=== PATIENT | male | born 1970 | race Caucasian/White ===

== ENCOUNTER 2019-04-14 17:56 | Inpatient (IN) | payer BC ==
[~2019-04-14] VITALS: Ht 172.7 cm; Wt 70.3 kg
--- NOTE | 2019-04-14 00:30 | NUR ---
ORDER HISTORY REFLECTS ORDER FOR POTASSIUM COMPLETE. CONTACTED PHARMACY TO REINSTATE ORDER SO PRESCRIBED POTASSIUM COULD BE GIVEN TO PATIENT. NEW ORDER TO BEGIN AT 0430/0530 RESPECTIVELY.
[2019-04-14] MEDS ORDERED: MORPHINE SULFATE 2 MG/1 ML DISP.SYRIN IV ONE (18:15)
[2019-04-14] MEDS ORDERED: IV NORMAL SALINE 1000 ML BAG IV ONE (18:15)
[2019-04-14] MEDS ORDERED: ONDANSETRON 4 MG/2 ML VIAL IV ONE ×3 (18:15→21:30)
[2019-04-14] MEDS ORDERED: ONDANSETRON 4 MG/2 ML VIAL ONE ×2 (18:21→18:58)
[2019-04-14] MEDS ORDERED: MORPHINE SULFATE 4 MG/1 ML DISP.SYRIN ONE (18:21)
[2019-04-14 18:30] LABS: BASOPHILS % (AUTO) 0.5 % (0.0-2.0); EOSINOPHILS # (AUTO) 0.1 K/uL (0.0-0.7); HEMATOCRIT 42.1 % (36.7-47.1); HEMOGLOBIN 14.5 g/dL (12.5-16.3); LYMPHOCYTES % (AUTO) 25.7 % (20.5-51.5); MEAN CORPUSCULAR HEMOGLOBIN 29.8 uug (23.8-33.4); MEAN CORPUSCULAR HGB CONC 35 g/dL (32.5-36.3); MEAN CORPUSCULAR VOLUME 86.1 fL (73.0-96.2); MONOCYTES # (AUTO) 0.5 K/uL (2.0-10.0); MONOCYTES % (AUTO) 6.5 % (0.0-11.0); NEUTROPHILS # (AUTO) 5.1 K/uL (1.8-8.9); NEUTROPHILS % (AUTO) 66.3 % (38.5-71.5); PLATELET COUNT (AUTO) 228 K/uL (152-348); RED BLOOD CELL COUNT(AUTO) 4.89 MIL/uL (4.06-5.63); WHITE BLOOD COUNT (AUTO) 7.7 K/uL (3.6-10.2)
[2019-04-14 18:35] LABS: CREATININE 1.1 mg/dL (0.6-1.3); POTASSIUM 3.2 mmol/L (3.5-5.1)
[2019-04-14 18:40] LABS: BILIRUBIN,DIRECT 0.1 mg/dL (0.0-0.2); BILIRUBIN,TOTAL 0.6 mg/dL (0.2-1.0); TOTAL PROTEIN, SERUM 7.9 g/dL (6.4-8.2)
[2019-04-14] MEDS ORDERED: HYDROMORPHONE 1 MG/1 ML DISP.SYRIN ONE ×2 (18:42→20:06)
[2019-04-14] MEDS ORDERED: HYDROMORPHONE 1 MG/1 ML DISP.SYRIN IV ONE ×2 (18:45→19:00)
[2019-04-14] MEDS ORDERED: PANTOPRAZOLE SODIUM 40 MG VIAL ONE (18:58)
[2019-04-14] MEDS ORDERED: PANTOPRAZOLE SODIUM 40 MG VIAL IV ONE (19:00)
[2019-04-14] MEDS ORDERED: SWABABLE VALVE TRANSFER SET EA MC ONE (19:01)
[2019-04-14] MEDS ORDERED: IOHEXOL 300MG/ML 100 ML INFUS..BTL ONE (19:01)
[2019-04-14] MEDS ORDERED: IV NORMAL SALINE 250 ML IV ONE (19:01)
--- NOTE | 2019-04-14 19:15 | NUR ---
Received report from Zenaida CUELLAR, assumed care of pt., pt. taken off unit via stretcher for CT by Rad. tech.,
--- NOTE | 2019-04-14 19:47 | NUR ---
Pt. back from CT, resting in bed, female peoplesoft financials consultant at bedside, no pain medication needed at this time,
--- NOTE | 2019-04-14 19:50 | NUR ---
Jimbo jackson in [facility] - 04/14/19 at 1951 by JOSLYN Received call from UYEN Alford to be available @ approx. 2015
--- NOTE | 2019-04-14 19:50 | NUR ---
Jimbo jackson in [facility] - 04/14/19 at 1951 by JOSLYN left for night, requests to be called if any changes,
[2019-04-14] MEDS ORDERED: METOCLOPRAMIDE HCL 10 MG/2 ML VIAL IV PRN (22:00)
[2019-04-14] MEDS: POTASSIUM CHLORIDE 50 ML IV SCH ×2 (23:00→23:20)
--- NOTE | 2019-04-14 23:30 | NUR ---
RECEIVED PATIENT FROM ER WITH AT SIDE. ALL PERTINENT ASSESSMENTS COMPLETED AND NOTED IN CHART. PATIENT IS RESTING COMFORTABLY WITH NO COMPLAINTS OF PAIN. ALL ORDERS REVIEWED AND CARRIED OUT. SAFETY AND FALL PRECAUTIONS IN PLACE. CALL LIGHT AND PERSONAL ITEMS WITHIN REACH AT ALL TIMES. WILL CONTINUE TO MONITOR.
[2019-04-14 23:34] VITALS: BP 109/70
--- NOTE | 2019-04-14 23:35 | NUR ---
Pt. transferred off unit via wheelchair, all belongings w/ pt., NAD
--- NOTE | 2019-04-14 23:46 | NUR ---
Medications endorsed to Maureen
--- NOTE | 2019-04-14 23:50 | NUR ---
RECEIVED MEDICATION ENDORSEMENTS FROM ER NURSE, WHICH INCLUDED REPLACEMENT OF POTASSIUM VIA IV. REVIEWED CURRENT ORDERS FROM MD AND THERE WAS NOT A PRESCRIPTION FOR IV POTASSIUM. PATIENT'S CURRENT POTASSIUM LEVEL IS 3.2. WILL ENDORSE TO AM SHIFT FOR FOLLOW-UP WITH
--- NOTE | 2019-04-15 00:30 | NUR ---
FOUND POTASSIUM ORDER IN ORDER HISTORY COMPLETED. CONTACTED PHARMACY TO HAVE REINSTATED. NEW ORDER REFLECTS INFUSION TO BE GIVEN AT 0430/8230 RESPECTIVELY. Addendum: 04/15/19 at [id number] by RAYMUNDO BOSTON RN INCORRECT DATE FOR NOTE. SHOULD HAVE BEEN 04/15/19
[2019-04-15] MEDS: IV NS 1000 ML 1,000 ML IV PRN ×3 (00:51→18:48)
[2019-04-15] MEDS: ONDANSETRON 4 MG/2 ML VIAL IV PRN ×3 (00:52→12:32)
[2019-04-15] MEDS: HYDROMORPHONE 1 MG/1 ML DISP.SYRIN IV PRN ×2 (01:10→05:50)
[2019-04-15] MEDS: POTASSIUM CHLORIDE 50 ML IV SCH ×2 (04:34→05:51)
--- NOTE | 2019-04-15 05:29 | NUR ---
ONCE SETTLED IN ROOM, PATIENT SLEPT COMFORTABLY THROUGHOUT NIGHT. COMPLAINTS OF PAIN WERE RELIEVED WITH PRESCRIBED ANALGESIA WITH NO ADVERSE SIDE EFFECTS VERBALIZED BY PATIENT OR NOTED/OBSERVED BY NURSE. ALL PRESCRIBED IV FLUIDS PROVIDED ORDERED AND TOLERATED WELL. SAFETY AND FALL PRECAUTION MEASURES IN PLACE. CALL LIGHT AND PERSONAL ITEMS WITHIN REACH AT ALL TIMES.
[2019-04-15 06:11] VITALS: BP 103/63
[2019-04-15 07:48] LABS: BASOPHILS % (AUTO) 0.6 % (0.0-2.0); EOSINOPHILS # (AUTO) 0.1 K/uL (0.0-0.7); EOSINOPHILS % (AUTO) 1.8 % (0.0-7.0); HEMATOCRIT 36.2 % (36.7-47.1); HEMOGLOBIN 12.6 g/dL (12.5-16.3); LYMPHOCYTES # (AUTO) 1.6 K/uL (20.0-40.0); LYMPHOCYTES % (AUTO) 30.9 % (20.5-51.5); MEAN CORPUSCULAR HEMOGLOBIN 30.2 uug (23.8-33.4); MEAN CORPUSCULAR HGB CONC 35 g/dL (32.5-36.3); MEAN CORPUSCULAR VOLUME 87.2 fL (73.0-96.2); MONOCYTES # (AUTO) 0.4 K/uL (2.0-10.0); MONOCYTES % (AUTO) 8.2 % (0.0-11.0); NEUTROPHILS # (AUTO) 3.1 K/uL (1.8-8.9); NEUTROPHILS % (AUTO) 58.5 % (38.5-71.5); PLATELET COUNT (AUTO) 183 K/uL (152-348); RED BLOOD CELL COUNT(AUTO) 4.15 MIL/uL (4.06-5.63); WHITE BLOOD COUNT (AUTO) 5.3 K/uL (3.6-10.2)
[2019-04-15 08:00] VITALS: BP 103/56
[2019-04-15 08:17] LABS: THYROID STIMULATING HORMONE 2.817 mIU/mL (0.358-3.740)
[2019-04-15 08:35] LABS: BILIRUBIN,TOTAL 0.6 mg/dL (0.2-1.0); CREATININE 0.7 mg/dL (0.6-1.3); PHOSPHOROUS 4.3 mg/dL (2.5-4.9); POTASSIUM 5.2 mmol/L (3.5-5.1); TOTAL PROTEIN, SERUM 6.3 g/dL (6.4-8.2)
[2019-04-15 11:57] VITALS: BP 102/70
[2019-04-15] MEDS ORDERED: DIATR MEGLU/DIATRIZOATE SODIUM 30 ML SOLUTION ONE (12:43)
[2019-04-15] MEDS ORDERED: KETOROLAC TROMETHAMINE 15 MG INJ IVP ONE (13:00)
[2019-04-15 15:50] VITALS: BP 104/50
[2019-04-15] MEDS: KETOROLAC TROMETHAMINE 15 MG INJ IVP PRN ×2 (17:26→23:26)
[2019-04-15 20:27] VITALS: BP 111/72
[2019-04-16] MEDS: IV NS 1000 ML 1,000 ML IV PRN (02:59)
[2019-04-16 06:04] VITALS: BP 97/59
[2019-04-16 07:06] LABS: BASOPHILS % (AUTO) 0.8 % (0.0-2.0); EOSINOPHILS # (AUTO) 0.1 K/uL (0.0-0.7); EOSINOPHILS % (AUTO) 2.5 % (0.0-7.0); HEMATOCRIT 34.7 % (36.7-47.1); HEMOGLOBIN 12.2 g/dL (12.5-16.3); LYMPHOCYTES # (AUTO) 1.3 K/uL (20.0-40.0); LYMPHOCYTES % (AUTO) 32.2 % (20.5-51.5); MEAN CORPUSCULAR HEMOGLOBIN 30.4 uug (23.8-33.4); MEAN CORPUSCULAR HGB CONC 35 g/dL (32.5-36.3); MEAN CORPUSCULAR VOLUME 86.9 fL (73.0-96.2); MONOCYTES # (AUTO) 0.4 K/uL (2.0-10.0); MONOCYTES % (AUTO) 9.9 % (0.0-11.0); NEUTROPHILS # (AUTO) 2.1 K/uL (1.8-8.9); NEUTROPHILS % (AUTO) 54.6 % (38.5-71.5); PLATELET COUNT (AUTO) 154 K/uL (152-348); WHITE BLOOD COUNT (AUTO) 3.9 K/uL (3.6-10.2)
[2019-04-16 07:21] LABS: CREATININE 1.1 mg/dL (0.6-1.3); POTASSIUM 4.4 mmol/L (3.5-5.1)
[2019-04-16] MEDS: KETOROLAC TROMETHAMINE 15 MG INJ IVP PRN (07:37)
--- NOTE | 2019-04-16 08:59 | NUR ---
dc orders received noted and carried out.dc heplock per md orders dc instruction and education given to the pt.pt left the facility via private car in stable condition
== END 2019-04-16 09:00 | disposition home or self-care (01) | DRG 390 ==
LOC: ER 17:59 → MEDSURG3 23:22
PROVIDERS: ADMIT Nurse Practitioner Acute Care; ATTEND Nurse Practitioner Acute Care
DX: K56.51 Intestinal adhesions [bands], with partial obstruction (principal); E87.6 Hypokalemia; Z98.52 Vasectomy status; N40.0 Benign prostatic hyperplasia without lower urinary tract symptoms; Z53.20 Procedure and treatment not carried out because of patient's decision for unspecified reasons; R73.9 Hyperglycemia, unspecified; Z98.890 Other specified postprocedural states
CPT/HCPCS: 36415; 71045; 74250; 83690; 83735; 84100; 84443; 85025; 93005; A4663; C9113; G0378; J1170; J1885; J2270; J2405; J3480; J7030; J7050; Q9963; Q9967